=== PATIENT | male | born 1990 | race African-American/Black ===

== ENCOUNTER 2024-03-11 18:00 | Inpatient (IN) | payer MEDICAID, SELFPAY ==
[2024-03-11 18:37] VITALS: BP 126/79; PULSE 90; RESP 18; TEMP 36.8; O2SAT 98; BMI 31.2
[2024-03-11 20:00] VITALS: BP 148/89; PULSE 88; RESP 18; TEMP 36.8; O2SAT 98
--- NOTE | 2024-03-11 20:26 | HO.PM.IMCN ---
History of Present Illness Data of Consult Service Date: 03/11/24 Primary Care Provider: Felicitas Physician HPI Reason for consult: Admission H&P Pt is a 33-year-old male with no known significant PMH not on home medications?who is admitted to [facility] psychiatry unit. Medical consult for admission H&P. ?Patient's only complaint is that he is currently homeless and is requesting both retirement and a job. Recently moved from [place] and has been living out of a car. Patient denies any significant PMH or surgeries. Has no acute medical complaints. Denies fever, chills, nausea, vomiting, abdominal pain. No chest pain/pressure or palpitations. No shortness a breath or difficulty breathing. Denies headache or acute vision changes. Review of Systems Review of Systems: Patient has no acute medical complaints PMFSH Social History Household Members: None Housing: Homeless Housing Other:: car Do you presently have visiting nurse or other home services: No Patient Tobacco Use Status: Current everyday Tobacco user Cigarette Packs Per Day: 0.5 Cigarettes Per Day: 10.0 Patient Interested in Nicotine Replacement: Yes Use of substances other than those prescribed or required for medical reasons: Yes Substance Use Type: Marijuana Substance Use Frequency: Chronic Longstanding Last Used Substance: Just Prior to Admission Currently Displaying Signs/Symptoms of Drug Intoxication Withdrawal: No Advance Directives: No Advance Directives Information Provided: Yes Do you have thoughts of harming others: None Do you have a plan to hurt others: No Plan Recently lost weight without trying: No How much weight loss: Not applicable Eating poorly because of decreased appetite: No Nutrition screen score: 0 Nutrition Risks: No Nutritional Risk Poor oral hygiene: No Meds Allergies Allergy/AdvReac Type Severity Reaction Status Date / Time No Known Allergies Allergy Verified 03/11/24 18:36 Active Medications: Current Medications Acetaminophen (Acetaminophen 325 Mg Tablet) 650 mg PO Q6H PRN PRN Reason: Headache/Pain Mild Scale (1-3) Al Hydroxide/Mg Hydroxide (Magnesium Hydrox/Alum Hydrox 30 Ml Oral.Susp) 30 ml PO Q6H PRN PRN Reason: Heartburn/Nausea Hydroxyzine HCl (Hydroxyzine Hcl 25 Mg Tablet) 25 mg PO Q6H PRN PRN Reason: Anxiety Magnesium Hydroxide (Milk Of Magnesia 30 Ml Oral.Susp) 30 ml PO DAILY PRN PRN Reason: Constipation Nicotine (Nicotine 21 Mg Patch.Td24) 21 mg TRANSDERMA DAILY PRN PRN Reason: smoking cessation Nicotine Polacrilex (Nicotine Polacrilex 2 Mg Gum) 4 mg BUCCAL Q2H PRN PRN Reason: Nicotine Cravings Olanzapine (Olanzapine 5 Mg Tablet) 5 mg PO TID PRN PRN Reason: agitation Trazodone HCl (Trazodone Hcl 50 Mg Tablet) 50 mg PO BEDTIME MRX1 PRN PRN Reason: Insomnia Home Medications ?Medication ?Instructions ?Recorded ?Confirmed ?Last Taken ?Type Unobtainable 03/12/24 03/12/24 Unknown History Physical Exam Vital Signs and Narrative: Vital Signs: Last Vital Signs Temp 98.3 F 03/11/24 18:37 Pulse 90 03/11/24 18:37 Resp 18 03/11/24 18:37 BP 126/79 03/11/24 18:37 Pulse Ox 98 03/11/24 18:37 O2 Del Method Room Air 03/11/24 18:37 BMI result Body Mass Index 31.2 General: AOx3, no acute distress Resp: CTA bilaterally CVS: S1, S2, RRR GI: +BS, NT, no distention Skin: Warm, dry Neuro: Cranial nerves II-XII grossly intact bilaterally. Motor grossly intact bilaterally Extremities: No edema Psych: Appropriate affect Results Labs 03/11/24 19:56 Assessment and Plan (1) Medical clearance for psychiatric admission: Status: Acute Plan Pt is a 33-year-old male with no known significant PMH not on home medications?who is admitted to [facility] psychiatry unit. Medical consult for admission H&P. ?Patient's only complaint is that he is currently homeless and is requesting both retirement and a job. Recently moved from [place] and has been living out of a car. Patient denies any significant PMH or surgeries. Has no acute medical complaints. Mood disorder Plan as per psychiatry Patient otherwise has no acute medical complaints or any known chronic medical conditions. Will sign off for now. Thank you for allowing us to participate in the care of this patient. Please re-consult if any acute issue or need arises.
[2024-03-11 20:35] LABS: Alanine Aminotransferase 30 U/L (0-40); Albumin Level 4.3 g/dL (3.5-5.0); Alkaline Phosphatase 38 U/L (39-117); Anion Gap 12 (12-20); Aspartate Amino Transferase 42 U/L (5-37); Bilirubin Total 0.3 mg/dL (0.0-1.0); Blood Urea Nitrogen 12 mg/dL (9-16); Carbon Dioxide 29 mmol/L (22-29); Chloride 106 mmol/L (96-108); Creatinine Clr Calc Pharmacy 105.8; Estimated Glomerular Filt Rate > 60; Glucose Random 75 mg/dL (60-115); Potassium 4.5 mmol/L (3.3-5.1); Sodium 142 mmol/L (135-145); Total Protein 7.7 g/dL (6.5-8.0)
[2024-03-11] MEDS: Acetaminophen 325 MG TABLET 650 MG PO (21:16)
--- OUTSIDE RECORDS SUMMARY | 2024-03-12 03:18 | XMS_ITS | Continuity of Care Document ---
Author Organization [facility] Address [address] [place] [address] Care Team Providers Care Funeral Driver Name Role Phone Ailyn Clark NP Unavailable Unavailabl e Allergies, Adverse Reactions, Alerts Substance Reaction Status Criticality No Known Allergies Active No Inform ation Advance Directives Directive Yes / No Effective Date File Name No Information Encounters Encounter Description Practice Location Reason(s) For Visit Diagnoses Date Provider Providers Copied on Encounter [facility], [address] [place] [address], [facility] R&E No Information 2 Amber Robertson. [address] [place] [address], . [facility], [address] [place] [address], [facility] Seizure 2 Amber Robertson. [address] [place] [address], . Family History Family Member Type Diagnosis Age At Onset No Information Payers Payer name Insurance type Covered alliance party ID Authoriza tion(s) No Information Social History Type Description Quantity Date Captured Comments Alcohol Use Details Unknown Caffeine Use Details Unknown Tobacco Use Status No Information Smoking Status No Information Sex Male Chief Complaint And Reason For Visit No Information History Of Present Illness Encounter Date Complaint History Of Prese nt Illness No Information Instructions Date Instruction Additional Infor mation No Information Assessments Type Assessment Date No Information
--- NOTE | 2024-03-12 06:45 | PC.ADMIT ---
Pt is a 33yo Male who arrives from [facility] for major depressive disorder. Pt arrived prior to this RN arrival, upon interview pt reports depression related to feeling that nobody helps him, complains of chest pain and headache for weeks Pt reports history of seizures and not taking medication for like 6 months Per med record pt was given one dose of Keppra in ED [facility], multiple visits to ED over past month, hx of lability and aggression. Pt is calm, cooperative at time of interview but appears to be distracted, distant. When pt woke in AM he was loudly laughing, different laughs consecutively, speaking in loud voice, taking on strong southern [place] accent, responding to internal stimuli. Taking on other accents throughout morning. Tox screen pos for THC.
[2024-03-12] MEDS: Acetaminophen 325 MG TABLET 650 MG PO ×2 (08:36→17:32)
[2024-03-12] MEDS: Nicotine 21 MG PATCH.TD24 TRANSDERMA (08:37)
[2024-03-12] MEDS: Nicotine Polacrilex 2 MG GUM 4 MG BUCCAL (08:37)
[2024-03-12 08:45] LABS: Estimated Average Glucose 111 mg/dL; Hemoglobin A1C 134.6956 umol/L; Hemoglobin A1c % 5.5 % (<6.0)
[2024-03-12 08:58] LABS: Cholesterol 172 mg/dL (<200); HDL Cholesterol 64 mg/dL (>40); LDL Cholesterol Calculated 97 mg/dL (<100); Triglycerides 59 mg/dL (<150)
[2024-03-12 09:15] LABS: TSH reflex Free T4 2.01 uIU/mL (0.32-4.0)
[2024-03-12 10:23] VITALS: BP 137/90; PULSE 80; RESP 18; TEMP 36.6; O2SAT 99
[2024-03-12] MEDS: hydrOXYzine HCL 25 MG TABLET PO ×2 (11:31→20:40)
--- NOTE | 2024-03-12 11:39 | HO.PSYADMNOT ---
HPI Date of Service: 03/12/24 Chief Complaint: Major depressive d/o recurrent severe Sources of Information: patient interviewed, chart reviewed and crisis/core team assessment reviewed HPI Subjective Notes: [place] Warning and Conditional Voluntary Narrative: Patient is a 33-year-old male with unknown psychiatric history who reported to [facility] ED saying no one wants to help him and wanting to talk about his mental health. He told ED staff that he believes he had a seizure. To ED staff, he denied ever having any SI; staff reports while there he would at times try to intimidate staff in the ED. they report that he had been evaluated multiple times in the past month for erratic behavior. Patient is calm, superficially cooperative and in behavioral and impulse control, organized in speech and behavior. Patient reports he came up from [place] a few weeks ago to be here with his little brother and nephews; he was staying with them at their motel room but said the place was too small and so he has been having to live in his car. Patient says I'm from [place]... And it is too cold up here. I can not be staying in my car explaining that is the only reason he went to a hospital, to get help with finding skilled nursing and a job. On inquiry regarding report that patient had a no trespass order for his brother's hotel, he says I have no idea about that...I am just here to get help with housing and a job... And that the ED told him that this hospitalization was going to help him with that. If not, he would otherwise like discharge. He denies any depression, anxiety, SI, HI AVH, manic episodes or behaviors or any psychiatric illness; he does not want treatment of any kind. To staff here he denied having a seizure disorder saying that it was not really a thing, that he just is saying stuff to help get housing and a job. It is noteworthy that [facility] ED provider wrote that pt was not meeting Section 12 criteria. Denies any current drug or alcohol use that he has not used alcohol for weeks. Past Psychiatric History: Has been evaluated several times in the past month at the ED or with crisis equivalent Denies any history of psychiatric admissions Denies any history of SI or SA Medical Evaluation Reviewed: Hospitalist Timi Pending (Patient declined) [facility] Family History: Deferred Social History: Foster care No children Does not talk to biological parents Graduated high school Says some college at [employer] ED reports patient arrested for violating a no trespass order at his brother's motel Crisis notes report history of high speed [place] and [place] resulting in 2 months incarceration Substance History: History of drinking alcohol daily; patient says he has not drank in weeks Trauma History: Denies Diagnostics Vital Signs (24Hr): Vital Signs - 24 hr 03/11/24 18:37 03/11/24 20:00 03/12/24 10:23 Temperature 98.3 F 98.3 F 97.8 F Pulse Rate 90 88 80 Respiratory Rate 18 18 18 Blood Pressure 126/79 148/89 H 137/90 H Pulse Oximetry 98 98 99 Oxygen Delivery Method Room Air Room Air Room Air BMI result Body Mass Index 31.2 Labs 03/11/24 19:56 Labs: Laboratory Results - last 48 hr 03/11/24 03/12/24 19:56 08:15 Sodium 142 Potassium 4.5 Chloride 106 Carbon Dioxide 29 Anion Gap 12 BUN 12 Creatinine 1.24 Estim Creat Clear Calc 105.8 Estimated GFR > 60 Random Glucose 75 Estimat Average Glucose 111 Hemoglobin A1c % 5.5 Calcium 10.0 Total Bilirubin 0.3 AST 42 H ALT 30 Alkaline Phosphatase 38 L Total Protein 7.7 Albumin 4.3 Triglycerides 59 Cholesterol 172 LDL Cholesterol, Calc 97 HDL Cholesterol 64 TSH 2.01 Meds/Allergies Meds Home Medications ?Medication ?Instructions ?Recorded ?Confirmed ?Type Unobtainable 03/12/24 03/12/24 History Allergies Allergies Allergy/AdvReac Type Severity Reaction Status Date / Time No Known Allergies Allergy Verified 03/11/24 18:36 Mental Status Exam Mental Status Exam Narrative: Pt is alert and oriented; behavior is superficially cooperative and calm; patient is not in distress; dressed in casual attire with silver capped upper teeth and adequate hygiene; mood is described as good and affect congruent; eye contact appropriate; Speech is normal rate, volume and prosody and not pressured; no psychomotor agitation/retardation present; thought process is organized and goal directed; Thought content is on help with housing and employment; otherwise pertinent to relevant topics and without any delusional content, paranoid ideations or grandiosity; denies any SI/HI. There is no evidence of perceptual disturbance and denies any AVH. Patients insight and judgment are intact. Assessment & Plan Assessment & Plan (1) Adjustment disorder with mixed disturbance of emotions and conduct in remission: Status: Acute Code(s): F43.25 - Adjustment disorder with mixed disturbance of emotions and conduct (2) Antisocial personality disorder: Status: Suspected Code(s): F60.2 - Antisocial personality disorder Plan Patient is a 33-year-old male with unknown psychiatric history who drove himself to [facility] ED saying no one wants to help him and wanting to talk about his mental health. He told ED staff that he believes he had a seizure. To ED staff, he denied ever having any SI; staff reports while there he would at times try to intimidate staff in the ED. they report that he had been evaluated multiple times in the past month for erratic behavior. Patient is calm, superficially cooperative and in behavioral and impulse control, organized in speech and behavior. Patient reports he came up from [place] a few weeks ago to be here with his little brother and nephews; he was staying with them at their motel room but said the place was too small and so he has been having to live in his car. Patient says I'm from [place]... And it is too cold up here. I can not be staying in my car explaining that is the only reason he went to a hospital, to get help with finding skilled nursing and a job. On inquiry regarding report that patient had a no trespass order for his brother's hotel, he says I have no idea about that...I am just here to get help with housing and a job... And that the ED told him that this hospitalization was going to help him with that. If not, he would otherwise like discharge. He denies any depression, anxiety, SI, HI AVH, manic episodes or behaviors or any psychiatric illness; he does not want treatment of any kind. To staff here he denied having a seizure disorder saying that it was not really a thing, that he just is saying stuff to help get housing and a job. It is noteworthy that [facility] ED provider wrote that pt was not meeting Section 12 criteria. Denies any current drug or alcohol use that he has not used alcohol for weeks. Impression: Perhaps patient had an adjustment disorder to being trespassed from his brother's motel and having to live in his car, prompting him to present to the ED. However at the ED in [place], there is little mention of noteworthy depression or anxiety. Here, he denied having a seizure disorder and does not want any medication for this. Patient only wants help with housing and employment consistently denies all psychiatric symptoms and does not want treatment of any kind. He is fully organized in speech and behavior. He does not appear to be psychotic or responding to internal stimuli; he has no symptoms of [place]. [place] II interactions demonstrating strong personality component which are prominent in presentations. Patient does not have treatable psychiatric illness; does not want treatment and is asking for discharge. Has consistently denied any SI/HI both in the ED and at this admission. He is not in imminent risk for harm to self or others inappropriate for discharge Plan: Discharge Patient educated on: diagnosis and therapeutic strategies Informed Consent: understands Reason for continued inpatient stay Substantial Risk for: stable for discharge Statement Statement: I have reviewed the history and physical and performed a pertinent examination on my patient. No changes have occurred unless specified. If the History and Physical was not performed prior to admission, the Hospitalist's service will be consulted for completing the admission physical. Time Spent With Patient Time: Total time managing care of this patient today ____ minutes.
[2024-03-12] MEDS: Ibuprofen 600 MG TABLET PO ×2 (12:58→19:45)
--- NOTE | 2024-03-12 18:49 | PM.PSYDC ---
DS: Providers Provider Date of Service: 03/13/24 Date of admission: 03/11/24 18:00 Date of discharge: 03/13/24 Primary care physician: None Physician Attending physician on admission: Ike Barajas Consults: 03/11/24 19:01 Consult to Hospitalist Routine Comment: Consulting Provider: [facility] Reason For Exam: admission physical Attending physician on discharge: Ike Barajas DS: Diagnosis Discharge Diagnosis (1) Adjustment disorder with mixed disturbance of emotions and conduct in remission: Status: Acute (2) Antisocial personality disorder: Status: Suspected DS: Medications Discharge Medications Home Medications: Home Medications ?Medication ?Instructions ?Recorded ?Confirmed Unobtainable 03/12/24 03/12/24 Mental Status Exam Mental Status Exam Narrative: Pt is alert and oriented; behavior is superficially cooperative and calm; Dismissive; patient is not in distress; dressed in casual attire with silver capped upper teeth and adequate hygiene; mood is described as good and affect congruent; eye contact appropriate; Speech is normal rate, volume and prosody and not pressured; no psychomotor agitation/retardation present; thought process is organized and goal directed; Thought content is on help with housing and employment; otherwise pertinent to relevant topics and without any delusional content, paranoid ideations or grandiosity; denies any SI/HI. There is no evidence of perceptual disturbance and denies any AVH. Patients insight and judgment are intact. Data Data Completed and Pending Completed studies during hospitalization [Text1]: 03/11/24 03/12/24 19:56 08:15 Sodium 142 Potassium 4.5 Chloride 106 Carbon Dioxide 29 Anion Gap 12 BUN 12 Creatinine 1.24 Estim Creat Clear Calc 105.8 Estimated GFR > 60 Random Glucose 75 Estimat Average Glucose 111 Hemoglobin A1c % 5.5 Calcium 10.0 Total Bilirubin 0.3 AST 42 H ALT 30 Alkaline Phosphatase 38 L Total Protein 7.7 Albumin 4.3 Triglycerides 59 Cholesterol 172 LDL Cholesterol, Calc 97 HDL Cholesterol 64 TSH 2.01 DS: Summary Hospital Course Hospital Course: Patient is a 33-year-old male with unknown psychiatric history who drove himself to [place] ED saying no one wants to help him and wanting to talk about his mental health. He told ED staff that he believes he had a seizure. To ED staff, he denied ever having any SI; staff reports while there he would at times try to intimidate staff in the ED. they report that he had been evaluated multiple times in the past month for erratic behavior. Patient is calm, superficially cooperative and in behavioral and impulse control, organized in speech and behavior. Patient reports he came up from [place] a few weeks ago to be here with his little brother and nephews; he was staying with them at their motel room but said the place was too small and so he has been having to live in his car. Patient says I'm from [place]... And it is too cold up here. I can not be staying in my car explaining that is the only reason he went to a hospital, to get help with finding senior living and a job. On inquiry regarding report that patient had a no trespass order for his brother's hotel, he says I have no idea about that...I am just here to get help with housing and a job... And that the ED told him that this hospitalization was going to help him with that. If not, he would otherwise like discharge. He denies any depression, anxiety, SI, HI AVH, manic episodes or behaviors or any psychiatric illness; he does not want treatment of any kind. To staff here he denied having a seizure disorder saying that it was not really a thing, that he just is saying stuff to help get housing and a job. It is noteworthy that [facility] ED provider wrote that pt was not meeting Section 12 criteria. Denies any current drug or alcohol use that he has not used alcohol for weeks. Impression: Patient has Adjustment Disorder due to being trespassed from his brother's motel and having to live in his car, prompting him to present to the ED. This is now fully resolved. Otherwise, [place] II interactions demonstrating strong characterlogical component remain prominent feature in presentation. In [facility] ED there was little mention of noteworthy depression or anxiety, both of which he fully denies here; he's consistently denied any SI/HI both in the ED and during this admission. Pt denies having a seizure disorder and does not want any medication for this. Patient only wants help with housing and employment and consistently denies all psychiatric symptoms; he does not want treatment of any kind. Patient is fully organized in speech and behavior; he is w/out any psychotic or manic symptoms. Patient does not have treatable psychiatric illness, is not asking for treatment and wants discharge. He is not in imminent risk for harm to self or others and appropriate for discharge Hospital course: Patient remained in behavioral and impulse control; he remained wanting discharge and not wanting treatment of any kind. Time spent discussing smoking cessation with patient: 3 to 10 minutes Status at Discharge Functional status at discharge: independent ambulation Overall status at discharge: patient is back to baseline Time Spent with Patient Time attestation: Total time managing care of this patient today ____ minutes. Time spent: Less than 30 minutes Discharge Plan Discharge Anticipated Discharge Date/Time: 03/13/24 11:00 Patient Disposition: Nursing Home Discharge Diagnosis: Adjustment disorder in full remission Referrals: [facility] [Other] - 1 Week (Walk in Mental Health Intake for psychiatry and therapy services M-F 8am - 8pm Sat 9-5pm) [facility] [Other] - 1 Week (Help with social sciences department chair in the community. ) Physician,None [Primary Care Provider] - 1 Week Discharge Medications: No Action Unobtainable Discharge Orders: Discharge Order (Routine); Ordered 03/13/24 Ordered By: Ike Barajas Diet: Regular diet Activity on Discharge: As tolerated Stand Alone Forms: Patient Portal Discharge page, Community Support Print Language: Irish Care Plan Goals: Maintain mood and safe behaviors Continue to pursue sobriety Continue with outpatient providers and reach out to them as needed Health Concerns: Mood stability and behaviors Plan of Treatment: Practice coping skills Assessment: Risk assessment at time of discharge:? Patient was interviewed prior to discharge and found to be fully oriented and without any SI or HI. Patient is not in imminent risk of harm to self or others. Throughout admission; patient has not engaged in any behaviors that suggest dangerousness to self or others and has demonstrated appropriate behaviors and impulse control Discharge Date/Time: 03/13/24 11:08
[2024-03-12 20:00] VITALS: BP 150/89; PULSE 90; O2SAT 98
[2024-03-12] MEDS: OLANZapine 5 MG TABLET PO (20:39)
[2024-03-12] MEDS: traZODone HCL 50 MG TABLET PO (20:40)
[2024-03-13 08:00] VITALS: BP 128/79; PULSE 84; RESP 18; TEMP 36.4; O2SAT 100
[2024-03-13] MEDS: Ibuprofen 600 MG TABLET PO (08:26)
--- NOTE | 2024-03-13 10:16 | P.DS_ITS ---
DS: Providers Provider Date of admission: 03/11/24 18:00 Primary care physician: None Physician Consults: 03/11/24 19:01 Consult to Hospitalist Routine Comment: Consulting Provider: [facility] [place] For Exam: admission physical DS: Diagnosis Discharge Diagnosis (1) Adjustment disorder with mixed disturbance of emotions and conduct in remission: Status: Acute (2) Antisocial personality disorder: Status: Suspected DS: Medications Discharge Medications Home Medications: Home Medications ?Medication ?Instructions ?Recorded ?Confirmed Unobtainable 03/12/24 03/12/24 Data Data Completed and Pending Completed studies during hospitalization [Text1]: 03/11/24 03/12/24 19:56 08:15 Sodium 142 Potassium 4.5 Chloride 106 Carbon Dioxide 29 Anion Gap 12 BUN 12 Creatinine 1.24 Estim Creat Clear Calc 105.8 Estimated GFR > 60 Random Glucose 75 Estimat Average Glucose 111 Hemoglobin A1c % 5.5 Calcium 10.0 Total Bilirubin 0.3 AST 42 H ALT 30 Alkaline Phosphatase 38 L Total Protein 7.7 Albumin 4.3 Triglycerides 59 Cholesterol 172 LDL Cholesterol, Calc 97 HDL Cholesterol 64 TSH 2.01 DS: Summary Hospital Course Hospital Course: Patient is a 33-year-old male with unknown psychiatric history who drove himself to [facility] saying no one wants to help him and wanting to talk about his mental health. He told ED staff that he believes he had a seizure. To ED staff, he denied ever having any SI; staff reports while there he would at times try to intimidate staff in the ED. they report that he had been evaluated multiple times in the past month for erratic behavior. Patient is calm, superficially cooperative and in behavioral and impulse control, organized in speech and behavior. Patient reports he came up from [place] a few weeks ago to be here with his little brother and nephews; he was staying with them at their motel room but said the place was too small and so he has been having to live in his car. Patient says I'm from [place]... And it is too cold up here. I can not be staying in my car explaining that is the only reason he went to a hospital, to get help with finding long-term and a job. On inquiry regarding report that patient had a no trespass order for his brother's hotel, he says I have no idea about that...I am just here to get help with housing and a job... And that the ED told him that this hospitalization was going to help him with that. If not, he would otherwise like discharge. He denies any depression, anxiety, SI, HI AVH, manic episodes or behaviors or any psychiatric illness; he does not want treatment of any kind. To staff here he denied having a seizure disorder saying that it was not really a thing, that he just is saying stuff to help get housing and a job. It is noteworthy that [facility] ED provider wrote that pt was not meeting Section 12 criteria. Denies any current drug or alcohol use that he has not used alcohol for weeks. Impression: Patient has Adjustment Disorder due to being trespassed from his brother's motel and having to live in his car, prompting him to present to the ED. This is now fully resolved. Otherwise, [place] II interactions demonstrating strong characterlogical component remain prominent feature in presentation. In [facility] ED there was little mention of noteworthy depression or anxiety, both of which he fully denies here; he's consistently denied any SI/HI both in the ED and during this admission. Pt denies having a seizure disorder and does not want any medication for this. Patient only wants help with housing and employment and consistently denies all psychiatric symptoms; he does not want treatment of any kind. Patient is fully organized in speech and behavior; he is w/out any psychotic or manic symptoms. Patient does not have treatable psychiatric illness, is not asking for treatment and wants discharge. He is not in imminent risk for harm to self or others and appropriate for discharge Hospital course: Patient remained in behavioral and impulse control; he remained wanting discharge and not wanting treatment of any kind. Time Spent with Patient Time attestation: Total time managing care of this patient today ____ minutes. Discharge Plan Discharge Anticipated Discharge Date/Time: 03/13/24 11:00 Patient Disposition: Intermediate Discharge Diagnosis: Adjustment disorder Referrals: Physician,None [Primary Care Provider] - 1 Week Discharge Medications: No Action Unobtainable Discharge Orders: Discharge Order (Routine); Ordered 03/13/24 Ordered By: Ike Barajas Diet: Regular diet Activity on Discharge: As tolerated Stand Alone Forms: Patient Portal Discharge page, Community Support Print Language: Monegasque Care Plan Goals: Maintain mood and safe behaviors Continue to pursue sobriety Continue with outpatient providers and reach out to them as needed Health Concerns: Mood stability and behaviors Plan of Treatment: Practice coping skills Assessment: Risk assessment at time of discharge:? Patient was interviewed prior to discharge and found to be fully oriented and without any SI or HI. Patient is not in imminent risk of harm to self or others. Throughout admission; patient has not engaged in any behaviors that suggest dangerousness to self or others and has demonstrated appropriate behaviors and impulse control
== END 2024-03-13 11:08 | disposition home or self-care (01) | DRG 752 ==
PROVIDERS: Admitting Provider Psychiatry & Neurology Psychiatry; Visit Provider Psychiatry & Neurology Psychiatry
DX: F60.2 Antisocial personality disorder (principal); F17.210 Nicotine dependence, cigarettes, uncomplicated; F43.20 Adjustment disorder, unspecified; Z71.6 Tobacco abuse counseling; Z59.02 Unsheltered homelessness
CPT/HCPCS: 36415; 80053; 80061; 83036; 84443

== ENCOUNTER → 2024-03-11 18:00 | Outpatient (BNV) | payer MEDICAID, SELFPAY | PROVIDERS: Admitting Provider Psychiatry & Neurology Psychiatry; Visit Provider Student in an Organized Health Care Education/Training Program | DX: Z00.8 Encounter for other general examination (principal) | CPT/HCPCS: 99222 ==

== ENCOUNTER → 2024-03-11 18:00 | Outpatient (BNV) | payer OTHER, SELFPAY | PROVIDERS: Admitting Provider Psychiatry & Neurology Psychiatry; Visit Provider Psychiatry & Neurology Psychiatry | DX: F60.2 Antisocial personality disorder (principal); F43.25 Adjustment disorder with mixed disturbance of emotions and conduct | CPT/HCPCS: 99232 ==